=== PATIENT | female | born 1950 | race Two or more races ===

== ENCOUNTER 2017-08-29 01:10 | Observation (INO) | payer OTHER ==
--- NOTE | 2017-08-29 01:23 | CPEKG ---
Heart Rate: 91 RR Interval: 659 P-R Interval: 176 QRSD Interval: 68 QT Interval: 364 QTC Interval: 448 P [place]: 48 QRS [place]: -15 T Wave [place]: 41 EKG Severity - BORDERLINE ECG - EKG Impression: SINUS RHYTHM EKG Impression: PROBABLE LEFT ATRIAL ABNORMALITY EKG Impression: BORDERLINE LEFT AXIS DEVIATION Electronically Signed By: Bryce Brooke 29-Aug-2017 05:24:27
[2017-08-29] MEDS ORDERED: ASPIRIN 81 MG CHEWABLE TAB PO ONE (01:29)
[2017-08-29 01:39] LABS: PLATELET COUNT 288 10^3/uL (150-400)
--- NOTE | 2017-08-29 01:47 | EDPHY ---
H & P Stated Complaint: chest pain/ pressure w/ l arm and neck pain Time Seen by Provider: 08/29/17 01:18 HPI/ROS: Chief Complaint: Chest discomfort HPI: 67-year-old woman who is visiting from [place] presenting with substernal chest pressure which is radiating to her left arm and her neck. Patient states that this began after she took a walk earlier in the evening. For the past week she has been having chest tightness with her usual evening walks which goes away with rest. Also has having discomfort when she climbs up stairs. Some associated shortness of breath. Has a family history of her sister with coronary artery disease. No nausea or vomiting. No leg pain or swelling. No cough. My ROS PMH: Hypothyroidism Social History: No smoking, no alcohol, no recreational drug use Family History: non-contributory Physical Exam: Gen: Awake, Alert, No Distress HEENT: Nose: no rhinorrhea Eyes: PERRLA, EOMI Mouth: Moist mucosa Neck: Supple, no JVD Chest: nontender, lungs clear to auscultation Heart: S1, S2 normal, no murmur Abd: Soft, non-tender, no guarding Back: no CVA tenderness, no midline tenderness Ext: no edema, non-tender Skin: no rash Neuro: CN II-XII intact, Sensation grossly intact, Strength 5/5 in bilateral upper and lower extremities - Personal History Current Tetanus Diphtheria and Acellular Pertussis (TDAP): Unsure - Medical/Surgical History Other PMH: hypothyroid - Social History Smoking Status: Never smoked Constitutional: Initial Vital Signs Temperature (C) 36.8 C 08/29/17 01:15 Heart Rate 91 08/29/17 01:15 Respiratory Rate 16 08/29/17 01:15 Blood Pressure 152/90 H 08/29/17 01:15 O2 Sat (%) 99 08/29/17 01:15 O2 Delivery Mode Room Air O2 (L/minute) 2 Allergies/Adverse Reactions: Penicillins Allergy (Verified 08/29/17 01:14) antibiotics Allergy (Uncoded 08/29/17 01:14) Home Medications: Medication Instructions Recorded Levothyroxine 08/29/17 Medical Decision Making - Diagnostics EKG Interpretation: ECG time 1:21 a.m., sinus rhythm with a rate of 91, borderline left axis deviation, normal intervals, no acute ST or T-wave changes. Imaging Results: Chest x-ray shows no acute findings per my interpretation. Imaging: I viewed and interpreted images myself ED Course/Re-evaluation: 67-year-old woman with a very good history for anginal symptoms. No acute changes on her ECG at this time. Troponin is negative. Will be admitted to the hospitalist for further evaluation and stress test. - Data Points Laboratory Results: Laboratory Results 08/29/17 01:30 08/29/17 01:30 08/29/17 08/29/17 01:30 01:30 WBC 13.48 10^3/uL H 10^3/uL (3.80-9.50) RBC 4.56 10^6/uL 10^6/uL (4.18-5.33) Hgb 11.4 g/dL L g/dL (12.6-16.3) Hct 36.7 % L % (38.0-47.0) MCV 80.5 fL L fL (81.5-99.8) MCH 25.0 pg L pg (27.9-34.1) MCHC 31.1 g/dL L g/dL (32.4-36.7) RDW 14.4 % % (11.5-15.2) Plt Count 288 10^3/uL 10^3/uL (150-400) MPV 11.6 fL fL (8.7-11.7) Neut % (Auto) 48.9 % % (39.3-74.2) Lymph % (Auto) 39.7 % % (15.0-45.0) [place] % (Auto) 8.5 % % (4.5-13.0) Eos % (Auto) 2.3 % % (0.6-7.6) Baso % (Auto) 0.5 % % (0.3-1.7) Nucleat RBC Rel Count 0.0 % % (0.0-0.2) Absolute Neuts (auto) 6.58 10^3/uL H 10^3/uL (1.70-6.50) Absolute Lymphs (auto) 5.35 10^3/uL H 10^3/uL (1.00-3.00) Absolute Monos (auto) 1.15 10^3/uL H 10^3/uL (0.30-0.80) Absolute Eos (auto) 0.31 10^3/uL 10^3/uL (0.03-0.40) Absolute Basos (auto) 0.07 10^3/uL 10^3/uL (0.02-0.10) Absolute Nucleated RBC 0.00 10^3/uL 10^3/uL (0-0.01) Immature Gran % 0.1 % % (0.0-1.1) Immature Gran # 0.02 10^3/uL 10^3/uL (0.00-0.10) Sodium 144 mEq/L mEq/L (135-145) Potassium 4.1 mEq/L mEq/L (3.5-5.2) Chloride 106 mEq/L mEq/L (97-110) Carbon Dioxide 25 mEq/l mEq/l (22-31) Anion Gap 13 mEq/L mEq/L (8-16) BUN 10 mg/dL mg/dL (7-23) Creatinine 0.6 mg/dL mg/dL (0.6-1.0) Estimated GFR > 60 Glucose 103 mg/dL H mg/dL (70-100) Calcium 9.3 mg/dL mg/dL (8.5-10.4) Troponin I < 0.012 ng/mL ng/mL (0.000-0.034) Medications Given: Discontinued Medications Aspirin (Aspirin) 324 mg PO EDNOW ONE Stop: 08/29/17 01:30 Last Admin: 08/29/17 01:41 Dose: 324 mg Departure - Departure Disposition: [facility] Inpatient Acute Clinical Impression: Chest pain Condition: Fair Referrals: NONE *PRIMARY CARE P,. [Primary Care Provider] - As per Instructions
[2017-08-29] MEDS ORDERED: ACETAMINOPHEN 325 MG TAB PO PRN (02:40)
[2017-08-29] MEDS ORDERED: ONDANSETRON 4 MG/2 ML VIAL IVP PRN (02:40)
[2017-08-29] MEDS ORDERED: NITROGLYCERIN 0.4 MG BTL SL PRN (02:48)
[2017-08-29] MEDS ORDERED: BISACODYL 10 MG SUPP PR PRN (05:54)
[2017-08-29] MEDS ORDERED: LACTULOSE 20 GM/30 ML UDCUP PO PRN (05:54)
[2017-08-29] MEDS ORDERED: POLYETHYLENE GLYCOL 3350 17 GM PKT PO PRN (05:54)
[2017-08-29] MEDS ORDERED: MAGNESIUM HYDROXIDE 30 ML UDCUP PO PRN (05:54)
--- NOTE | 2017-08-29 05:58 | PDGENHP ---
History and Physical - Chief Complaint Left-sided chest pressure - History of Present Illness Source-patient is able to provide history appears reliable. Her daughter is at bedside supplements details. Patient is visiting from [facility] for the next several months. Case was discussed with ED provider in EMR was reviewed. HPI - pleasant 67-year-old female with past medical history significant for hypothyroidism who presents to the emergency department with approximately 1 week complaint of exertional chest pressure on the left side. Patient has been experiencing exertional type symptoms of left pressure exacerbated with exertion. Patient is normally quite active exercising 1-2 hours per day with yoga and walking. She has not previously had any symptoms. In the last several weeks patient is traveled from [facility] to [place] to visit her daughter. Patient reports she has had associated dyspnea on exertion. Her chest pressure and dyspnea both improved with rest. Patient does report occasional nausea but no vomiting. No diaphoresis. Patient has not had any palpitations. No associated lightheadedness. Patient denies any lower extremity edema or calf pain. No previous history DVT. Patient overall has been quite healthy. She does report that today she had a experience some associated left arm and left leg heaviness that also improved with rest. Patient without any headache, changes in vision, focal deficits. Patient does report occasional numbness tingling in her fingertips. Patient denies any lower extremity edema, PND, orthopnea. Family history is significant for sister with on coronary artery disease medically managed with [place] it in the her early 60s. Patient does not smoke or utilize any illicit drugs. Patient's diet is vegetarian based. Additionally daughter reports that patient does experience occasional reflux and water brash type symptoms. Patient reports she has had some abdominal discomfort improve with going to the bathroom. She denies any constipation/ diarrhea. History Information - Allergies/Home Medication List Allergies/Adverse Reactions: Penicillins Allergy (Verified 08/29/17 01:14) antibiotics Allergy (Uncoded 08/29/17 01:14) Home Medications: Levothyroxine 08/29/17 [Last Taken Unknown] I have personally reviewed and updated: family history, medical history, social history, surgical history - Past Medical History Additional medical history: Hypothyroidism - Surgical History Additional surgical history: Cataract extraction and lens placement bilaterally. - Family History Positive for: female first degree with premature CAD (Sister diagnosed in her early 60s.) - Social History Smoking Status: Never smoked Alcohol Use: None Drug Use: None Additional social history: Patient visiting from [facility] to visit with her daughter until December. Cor status-full. Review of Systems Review of Systems: ROS: 10pt was reviewed & negative except for what was stated in HPI & below Constitutional: Denies: chills, diaphoresis, fever, weakness EENMT: Denies: double vision, nose congestion, sore throat Cardiac: Reports: chest pain (Chest pressure see HPI). Denies: edema, lightheadedness, palpitations, syncope Respiratory: Reports: shortness of breath (Dyspnea on exertion). Denies: cough , orthopnea Gastrointestinal: Reports: abdominal pain (Some abdominal discomfort mid left lower abdomen), nausea (With exertion). Denies: vomitting, constipation, diarrhea Genitourinary: Reports: no symptoms. Denies: dysuria, hematuria Muscolosketal: Reports: joint pain (Bilateral hands chronic arthritis). Denies : muscle pain Skin: Reports: no symptoms, other (Patient complains of significantly dry skin since she has arrived to [place].) Neurological: Reports: tingling (Bilateral fingertips not exacerbated with exertion just intermittent). Denies: anxiety, emotional problems, tremors, weakness Hematologic/Lymphatic: Reports: no symptoms, swollen glands (Nontender lymph node right tonsillar just behind the ramus of the mandible) Immunologic/Allergy: Reports: no symptoms Physical Exam Physical Exam: Temp Pulse Resp BP Pulse Ox 36.6 C 77 16 145/82 H 94 08/29/17 03:41 08/29/17 03:41 08/29/17 03:41 08/29/17 03:41 08/29/17 03:41 Selected Entries 08/29/17 01:15 Blood Pressure Automatic Method Heart Rate 91 Respiratory 16 Rate O2 Sat (%) 99 Temperature (C) 36.8 C Blood Pressure 152/90 H Mean Arterial 110 H Pressure (MAP) O2 Delivery Room Air Mode Temperature Oral Source Constitutional: no apparent distress, not in pain, other (NAD. Pleasant adult female is lying quietly in bed. Daughter is at bedside.) Eyes: PERRL, anicteric sclera, EOMI Ears, Nose, Mouth, Throat: moist mucous membranes, no oral mucosal ulcers, other (No nasal discharge), No poor dentition Cardiovascular: regular rate and rhythym, no murmur, rub, or gallop, pulses symmetric bilaterally, No edema Peripheral Pulses: 2+: dorsalis-pedis (R), dorsalis-pedis (L) Respiratory: no respiratory distress, clear to auscultation, reduced air movement, No expiratory wheeze, No inspiratory crackles, No rhonchi Gastrointestinal: normoactive bowel sounds, no palpable masses, tenderness ( Patient reports a little discomfort to palpation but no rebound or guarding. Abdomen is soft but full.), No distension Skin: warm, normal color, No rash Musculoskeletal: full muscle strength, other (Patient sits up independently. Strength grossly normal.) Neurologic: AAOx3, sensation intact bilaterally, CN II-XII Intact, No weakness, No facial droop Psychiatric: interacting appropriately, not anxious, not encephalopathic, thought process linear, No poor insight, No poor judgement, No poor memory Lymph, Heme, Immunologic: lymphadenopathy (Right tonsillar lymphadenopathy nontender mobile to posterior mandibular ramus. No additional lymphadenopathy cervical supraclavicular or axillary palpated) Lab Data & Imaging Review 08/29/17 01:30 08/29/17 01:30 WBC 13.48 10^3/uL (3.80-9.50) H 08/29/17 01:30 RBC 4.56 10^6/uL (4.18-5.33) 08/29/17 01:30 Hgb 11.4 g/dL (12.6-16.3) L 08/29/17 01:30 Hct 36.7 % (38.0-47.0) L 08/29/17 01:30 MCV 80.5 fL (81.5-99.8) L 08/29/17 01:30 MCH 25.0 pg (27.9-34.1) L 08/29/17 01:30 MCHC 31.1 g/dL (32.4-36.7) L 08/29/17 01:30 RDW 14.4 % (11.5-15.2) 08/29/17 01:30 Plt Count 288 10^3/uL (150-400) 08/29/17 01:30 MPV 11.6 fL (8.7-11.7) 08/29/17 01:30 Neut % (Auto) 48.9 % (39.3-74.2) 08/29/17 01:30 Lymph % (Auto) 39.7 % (15.0-45.0) 08/29/17 01:30 [place] % (Auto) 8.5 % (4.5-13.0) 08/29/17 01:30 Eos % (Auto) 2.3 % (0.6-7.6) 08/29/17 01:30 Baso % (Auto) 0.5 % (0.3-1.7) 08/29/17 01:30 Nucleat RBC Rel Count 0.0 % (0.0-0.2) 08/29/17 01:30 Absolute Neuts (auto) 6.58 10^3/uL (1.70-6.50) H 08/29/17 01:30 Absolute Lymphs (auto) 5.35 10^3/uL (1.00-3.00) H 08/29/17 01:30 Absolute Monos (auto) 1.15 10^3/uL (0.30-0.80) H 08/29/17 01:30 Absolute Eos (auto) 0.31 10^3/uL (0.03-0.40) 08/29/17 01:30 Absolute Basos (auto) 0.07 10^3/uL (0.02-0.10) 08/29/17 01:30 Absolute Nucleated RBC 0.00 10^3/uL (0-0.01) 08/29/17 01:30 Immature Gran % 0.1 % (0.0-1.1) 08/29/17 01:30 Immature Gran # 0.02 10^3/uL (0.00-0.10) 08/29/17 01:30 Sodium 144 mEq/L (135-145) 08/29/17 01:30 Potassium 4.1 mEq/L (3.5-5.2) 08/29/17 01:30 Chloride 106 mEq/L (97-110) 08/29/17 01:30 Carbon Dioxide 25 mEq/l (22-31) 08/29/17 01:30 Anion Gap 13 mEq/L (8-16) 08/29/17 01:30 BUN 10 mg/dL (7-23) 08/29/17 01:30 Creatinine 0.6 mg/dL (0.6-1.0) 08/29/17 01:30 Estimated GFR > 60 08/29/17 01:30 Glucose 103 mg/dL (70-100) H 08/29/17 01:30 Calcium 9.3 mg/dL (8.5-10.4) 08/29/17 01:30 Troponin I < 0.012 ng/mL (0.000-0.034) 08/29/17 01:30 Imaging Review: Radiology report is pending but image was reviewed myself. Patient with hyper expansion of her lungs down to rib 10 11. Additionally there is some right perihilar prominence greater than the left. No nodules. No effusions. No cardiomegaly. Visualized and Interpreted Chest x-ray results: Yes Visualized and Interpreted EKG results: Yes EKG additional interpertation: NSR in the 90s. Lad. Q-wave in lead 3. There is no acute ST changes. QTC is 448. Assessment & Plan Assessment: Pleasant 67-year-old female visiting from [place] with history of hypothyroidism who presents to the emergency department with 1 week complaint of typical chest pain. Chest pain (Acute) - patient heart score is 5. Initial EKG and troponins negative for any acute findings. She does have a single Q-wave in lead 3. Positive family history of coronary artery disease in a sister at less than age 65. Patient is currently noting some very subtle left-sided chest pressure that has not been read relieved after aspirin. Will plan to trend cardiac enzymes and monitor her continuously on telemetry. Patient has been made NPO and anticipate that she will require a stress test if ruled out. Additional considerations for differential diagnosis including less likely PE as patient without any hypoxia or significant tachycardia and no symptoms of calf pain. She Patient also with history of reflux will go ahead and treat with Protonix however patient does note that her her current chest symptoms are much different from her water brash type symptoms from reflux. Patient is not previously had any cardiac evaluation or stress testing. Dyspnea on exertion - patient without any hypoxia or current complaints of dyspnea while at rest. Will monitor pulse ox. Patient does have some perihilar prominence on chest x-ray but she is not complaining of any other symptoms of acute infectious process. She has does have a mild leukocytosis but is currently afebrile. No antibiotic therapy at this time. Patient in the last several weeks has had a recent prolonged travel from [place] but again she is not hypoxic and she does not have any current tachycardia. Lymphadenopathy - patient with a single enlarged nontender lymph node in the tonsillar lymph node on the right posterior ramus of the mandible. Patient without any complaints of fever. The lymph node is new since arrival to [place]. Will monitor for any signs of viral or infectious process. Patient without any additional cervical postauricular or axillary lymph nodes bilaterally. I advised patient or daughter to continue to monitor closely and if it does not resolve to follow up with PCP. Anemia - no known previous history of anemia. Patient denies any melena or hematochezia. This could also be contributing to patient's current symptoms. No evidence of active bleeding. Patient should have additional follow-up as outpatient basis. Leukocytosis - on patient is currently afebrile without any symptoms of infectious process. Continue to monitor further evaluation patient should spike a temperature. Hypothyroidism - continue patient's levothyroxine once dosing is clarified. FEN - saline lock IV. NPO for few hours before anticipated stress test and then diet. Electrolyte monitoring and replacement if needed. PPX-SCDs. Mobilize if tolerated. Holding anticoagulation in anticipation of short hospital stay. Cor status-full Disposition-patient admitted observation status on PCU for close cardiac monitoring.
--- NOTE | 2017-08-29 11:32 | PDCARST ---
CAR Stress Test Results Type of Stress Test: Ramon Protocol Stress test Indication: Chest pain Description of Procedure: After consent was signed, patient was placed on treadmill. Ausculation to ensure no critical valve pathology was performed. No murmur was noted. Treadmill was started with Ramon Protocol. Vitals (heart rate, blood pressure, oxygen sat) were monitored. Impression: Patient completed 52 seconds on the treadmill and achieved heart rate to 106% of max predicted for age (164 bpm). No chest pains were noted, but shortness of breath was appreciated. No ST/T wave changes noted. Rooney Treadmill Score was +1 - 4 - 0 (-3) suggestive of intermediate risk for CAD Conclusion: Recommendations are for patient to have Mikayla scan stress testing tomorrow morning. Given the Equivocal results of this study, would not send patient how without more complete risk stratification.
[2017-08-29] MEDS: PANTOPRAZOLE SODIUM 40 MG TAB PO SCH (12:27)
[2017-08-29] MEDS: SENNOSIDES/DOCUSATE SODIUM TAB PO SCH ×2 (12:27→22:03)
--- NOTE | 2017-08-29 12:34 | HOSPPROG ---
Hospitalist Progress Note Assessment/Plan: #Atypical chest pressure -sxs atypical since has reproducible component, but concerning with decreased exercise tolerance and exertional symptoms. Sister with MO. Exercise treadmill indeterminate, Lexiscan in morning -Wells score 0 for PE #GERD: trial ranitidine #Hypothyroidism: LT4 #Diet: regular, NPO after midnight #Disp: warrants observation admission for Lexiscan test in morning Subjective: min chest pressure today Objective: Vital Signs Temp Pulse Resp BP Pulse Ox 36.6 C 77 15 124/71 H 92 08/29/17 12:00 08/29/17 12:00 08/29/17 12:00 08/29/17 12:00 08/29/17 12:00 - Physical Exam Constitutional: no apparent distress Eyes: PERRL Ears, Nose, Mouth, Throat: moist mucous membranes Cardiovascular: regular rate and rhythym, other (mild JULIO C chest pain with palpation) Respiratory: no respiratory distress Gastrointestinal: normoactive bowel sounds Genitourinary: no bladder fullness Skin: warm Musculoskeletal: full muscle strength Neurologic: AAOx3, CN II-XII Intact Psychiatric: interacting appropriately ICD10 Worksheet Patient Problems: Problems Problem Status Onset Chest pain Acute
[2017-08-29] MEDS: RANITIDINE HCL 150 MG/10 ML UDCUP PO SCH ×3 (14:57→19:36)
--- NOTE | 2017-08-29 15:52 | ASMTCMCOM ---
CM Note CM Note Notes: Chart reviewed. Patient admitted via ED with c/o exertional CP. Undergoing cardiac workup. No current needs identified at this time. CM to follow. Plan: Likely home with family support. Date Signed: 08/29/2017 03:52 PM Electronically Signed By:Kerri Martin RN
[2017-08-30] MEDS ORDERED: LEVOTHYROXINE 75 MCG TAB PO SCH (06:00)
--- NOTE | 2017-08-30 08:16 | HOSPPROG ---
Hospitalist Progress Note Assessment/Plan: #Atypical chest pressure -sxs atypical since has reproducible component, but concerning with decreased exercise tolerance and exertional symptoms. Sister with CA. Exercise treadmill indeterminate, Lexiscan negative -Wells score 0 for PE #Left thigh swelling: newly reported to me today. Eval for DVT #GERD: trial ranitidine #Hypothyroidism: LT4 #Leukocytosis: nearly resolved. No infectious signs or symptoms #Diet: regular, NPO after midnight #Disp: DC today if negative US leg Subjective: reports left thigh swelling for past several months Objective: Vital Signs Temp Pulse Resp BP Pulse Ox 36.6 C 94 18 118/63 97 08/30/17 04:00 08/30/17 07:38 08/30/17 07:38 08/30/17 07:38 08/30/17 07:38 Laboratory Results 08/30/17 03:48 08/29/17 08/30/17 08/31/17 05:59 05:59 05:59 Intake Total 300 Balance 300 - Physical Exam Constitutional: no apparent distress Eyes: PERRL Ears, Nose, Mouth, Throat: moist mucous membranes Cardiovascular: regular rate and rhythym, No edema Respiratory: no respiratory distress, no rales or rhonchi Gastrointestinal: normoactive bowel sounds, soft, non-tender abdomen Genitourinary: no bladder fullness Skin: warm Musculoskeletal: other (left upper thigh mildly swollen >R. Some TTP with palpation.) Neurologic: AAOx3, CN II-XII Intact Psychiatric: interacting appropriately ICD10 Worksheet Patient Problems: Problems Problem Status Onset Chest pain Acute
[2017-08-30] MEDS: PANTOPRAZOLE SODIUM 40 MG TAB PO SCH (08:30)
[2017-08-30] MEDS ORDERED: FAMOTIDINE 20 MG TAB PO SCH (09:00)
[2017-08-30] MEDS ORDERED: REGADENOSON 0.4 MG/5 ML SYR IVP ONE (09:42)
--- NOTE | 2017-08-30 13:44 | CPR ---
[f rep st] NONINVASIVE CARDIAC PROCEDURE REPORT DATE OF PROCEDURE: 08/30/2017 REASON FOR TEST: Chest discomfort. RESTING EKG: Shows a regular sinus rhythm with a rate of 77. No ischemic changes noted. Inferior l ead shows late R-wave progression. Resting blood pressure 110/60, oxygen saturation 97%, heart rate 7 7. She is asymptomatic. STRESS PORTION: Lexiscan was injected rapidly, followed by saline flush. Cardiolite was then inject ed, followed by saline flush. She felt shortness of breath after the injection. Her peak blood press ure with injection 118/48, oxygen saturation 100%. Peak heart rate 124. There were no EKG changes d uring stress portion. RECOVERY: She did spontaneously recover. Her blood pressure was 120/60, oxygen saturation 100%, hear t rate 116. There were no EKG changes. At this time, she currently is stable for nuclear imaging. /[id number]/MODL
[2017-08-30 15:48] VITALS: BP 119/71
--- NOTE | 2017-08-30 16:28 | ASDISCHSUM ---
Discharge Information Plan Status:Home with No Needs Medically Cleared to Leave:08/30/2017 Discharge Date:08/30/2017 CM D/C Disposition:Home, Routine, Self-Care ADT D/C Disposition:Home, Routine, Self-Care Projected Discharge Date:08/30/2017 Transportation at D/C:Family Discharge Delay Reason: Follow-Up Date:08/30/2017 Discharge Slot: Final Diagnosis: Placement Information Patient Contact Information Contact Name:BLANCHE Relationship:Daughter Address:1954 Work Phone: City:[place] Alternate Phone: [facility]/Zip Code:[place] [address] Email: Financial Information Financial Class:Commercial Primary Plan Desc:[facility] Primary Plan Number:[id number] Secondary Plan Desc: Secondary Plan Number: Assessment Information LACE LACE Length of stay for Answers: 1 day current admission Acuity / Level of Answers: No Care: Did the patient have an inpatient admission? Comorbidities - select Answers: Other Notes: chest pain all that apply # of Emergency department Answers: 1-2 visits in the last 6 months Score: 3 Date Signed: 08/30/2017 04:27 PM Electronically Signed By:Ирина Doran RN [facility] CM Progress Note CM Note CM Note Notes: Chart reviewed. Patient admitted via ED with c/o exertional CP. Undergoing cardiac workup. No current needs identified at this time. CM to follow. Plan: Likely home with family support. Date Signed: 08/29/2017 03:52 PM Electronically Signed By:Kerri Martin RN Case Management Discharge Plan Note Case Management Discharge Discharge Order Complete? Answers: Yes Patient to Obtain Answers: Independently Medications Transportation Arranged Answers: Family/Friends Discharge Comments Notes: 08/30/2017 Case Management Note Pt to d/c independent with support from family. There are no case management d/c needs identified at d/c. Family to transport home. Date Signed: 08/30/2017 04:27 PM Electronically Signed By:Ирина Doran RN Intervention Information
--- NOTE | 2017-08-30 16:40 | GDS ---
[f rep st] DISCHARGE SUMMARY DISCHARGE DIAGNOSES: 1. Left-sided chest pressure. 2. Left thigh swelling. 3. Hypothyroidism. 4. Acid reflux. HISTORY OF PRESENT ILLNESS: A pleasant 67-year-old female here with her daughter, presenting with left-sided exertional chest pressure. She has been experiencing these symptoms over the past week. She does yoga and walks daily without chest pain or shortness of breath. She has traveled from [facility] early in July to visit her daughter here in [place]. She denies nausea, vomiting, fevers, chills, or sweats. No cough. On day of admission, she had some left arm and leg heaviness with walking that improved with rest. HOSPITAL COURSE BY PROBLEM: 1. Left chest pressure, dyspnea: After further interview and exam, it appears that this could be related to GERD. Also had a reproducible component. Exercise treadmill was indeterminate, and subsequent Lexiscan was normal. Her Wells score was 0. She did have left upper thigh swelling, but the ultrasound was negative. Will trial ranitidine. 2. Hypothyroidism. Resume Synthroid. 3. GERD. Try ranitidine for several weeks. If not improved, she can be referred to a messaging architect. 4. Left thigh swelling: negative for DVT. DISPOSITION: Patient is stable for discharge home with her daughter. NEW MEDICATIONS: Ranitidine 150 mg daily. FOLLOWUP: 1. Establish care with a primary care physician, provided a number for Dr. Vianey Lyles. 2. If GERD persists, can get a referral for a messaging architect. /[id number]/MODL MTDD
== END 2017-08-30 17:11 | disposition home or self-care (01) ==
LOC: F2W 03:10
PROVIDERS: ADMIT Family Medicine; ATTEND Family Medicine
DX: K21.9 Gastro-esophageal reflux disease without esophagitis (principal); M79.89 Other specified soft tissue disorders; E03.9 Hypothyroidism, unspecified; D64.9 Anemia, unspecified; R59.9 Enlarged lymph nodes, unspecified
CPT/HCPCS: 71045; 78452; 93005; 93017; 93971; 99285; A9500; G0378; J2405; J2785